=== PATIENT | female | born 1960 | race Caucasian/White ===

== ENCOUNTER 2021-05-21 10:27 | Observation (INO) | payer MEDICARE, SELFPAY ==
[2021-05-21] VITALS (14 sets, daily range): BP systolic 124–159; BP diastolic 66–103; PULSE 71–81; RESP 15–21; TEMP 35.8–36.8; O2SAT 93–98; BMI 37.0
--- NOTE | ~2021-05-21 | CT_ITS ---
EXAMINATION: CTA brain carotid DATE: 05/21/2021 12:06 INDICATION: Slurred speech. Right facial weakness. TECHNIQUE: Computed tomographic angiography (CTA) of the head was performed with 100 mL Omnipaque-350 intravenous contrast. CTA of the neck was performed with intravenous contrast. Automated exposure co ntrol and iterative reconstruction technique were employed. The dose-length product was 1009.07 mGy-c m. Maximum intensity projection and volume rendered 3D-reconstructions were created by the technBeeziki st on a separate workstation. COMPARISON: Head CT 05/21/2021 FINDINGS: HEAD CTA: There is no intracranial hemorrhage, acute infarction, or abnormal intracranial mass lesion . The ventricles are normal in size. There is mucosal thickening in the paranasal sinuses. The mastoi d air cells are normal. The orbits are normal. Left vertebral artery is dominant. There is no signifi cant stenosis of basilar artery or the posterior cerebral arteries. There is no significant stenosis of the intracranial internal carotid arteries or anterior or middle cerebral arteries. Anterior commu nicating artery is normal. Right posterior communicating artery is normal. A left posterior communica ting artery is not identified. There is no aneurysm. NECK CTA: There are no pathologically enlarged lymph nodes. There is no significant stenosis of the v ertebral arteries. There is no visible plaque in the proximal internal carotid arteries. There is 0% stenosis of the proximal right internal carotid artery relative to normal distal artery lumen diamete r (NASCET criteria). There is 0% stenosis of the proximal left internal carotid artery relative to no rmal distal artery lumen diameter. There is moderate cervical spondylosis. IMPRESSION: 1. Normal brain. No aneurysm or significant intracranial arterial stenosis. 2. 0% stenosis of the proximal internal carotid arteries relative to normal distal artery lumen diame ters (NASCET criteria). Reviewed, dictated and finalized at location A. RONMENTAL COMMUNICATIONS SPECIALIST IMPRESSION: 1. Normal brain. No aneurysm or significant intracranial arterial stenosis. 2. 0% stenosis of the proximal internal carotid arteries relative to normal dis oral artery lumen diameters (NASCET criteria).
--- NOTE | ~2021-05-21 | CT_ITS ---
EXAMINATION: CT brain wo con DATE: 05/21/2021 11:02 INDICATION: Difficulty speaking. Dizziness. Sudden onset of seizure. TECHNIQUE: Computed tomography (CT) of the head was performed without intravenous contrast. The dose- length product was 756.67 mGy-cm. Automated exposure control and iterative reconstruction technique w ere employed. COMPARISON: None FINDINGS: Normal brain parenchymal volume for age. Normal beck-white differentiation. No acute intrac ranial hemorrhage, infarction, mass or mass effect. No ventriculomegaly or midline shift. Basilar cis terns are patent. There is intracranial atherosclerosis. There is mild mucosal thickening of the maxi llary sinuses. No acute intracranial hemorrhage, infarction, mass or mass effect. IMPRESSION: 1. No acute intracranial abnormality. As per stroke protocol, I called these results to emergency room, discussed with Dr. Ruthann Boston MD at 05/21/2021 11:08 LIQUEFIED NATURAL GAS PLANT OPERATOR. Reviewed, dictated and finalized at location A. EFIED NATURAL GAS PLANT OPERATOR IMPRESSION: 1. No acute intracranial abnormality. As per stroke protocol, I called these results to emergency room, discussed wit h Dr. Ruthann Boston MD at 05/21/2021 11:08 LIQUEFIED NATURAL GAS PLANT OPERATOR.
--- NOTE | ~2021-05-21 | MR_ITS ---
EXAMINATION: MR brain/brain stem wo/w con DATE: 05/21/2021 18:01 INDICATION: Right-sided numbness and aphasia TECHNIQUE: Magnetic resonance imaging (MRI) of the brain and brainstem was performed without and with 15 mL Multihance intravenous contrast. Sequences included sagittal and axial T1-weighted SE, axial d iffusion-weighted FS SE, axial T2*-weighted GRE, axial T2-weighted FLAIR, and axial T2-weighted FSE. Postcontrast axial and coronal T1-weighted SE was obtained. Apparent diffusion coefficient (ADC) maps were created. COMPARISON: Brain CT angiogram dated 05/21/2021 FINDINGS: There are no areas of restricted diffusion to suggest acute infarction. No intracranial hemorrhage or abnormal intracranial mass lesion. There are no intraparenchymal signal abnormalities seen on the ot her pulse sequences. The ventricles are symmetric and normal in size. There are no abnormal extra-axi al fluid collections. Flow voids are seen in the cerebral arteries on the T2-weighted sequences consi stent with their expected patency. Scattered mucosal thickening in the paranasal sinuses. Visualized orbits and soft tissues are unremarkable. There are no areas of abnormal enhancement on the post cont rast images. IMPRESSION: 1. Normal brain. No acute intracranial process or abnormally enhancing brain lesions.. Reviewed, dictated and finalized at [facility]. MANAGER IMPRESSION: 1. Normal brain. No acute intracranial process or abnormally enhancing brain le sions..
--- NOTE | ~2021-05-21 | XR_ITS ---
XR chest 1V portable DATE: 05/21/2021 11:20 INDICATION: Speech difficulty TECHNIQUE: Portable supine AP chest on 05/21/2021 at 1114 hours COMPARISON: 10/06/2014 CT chest high resolution FINDINGS: No pulmonary infiltrate or consolidation, pulmonary vascular congestion or pleural effusion or pneumothorax. Heart size is borderline. There is diffuse osteopenia. IMPRESSION: No active pulmonary disease Reviewed, dictated and finalized at location B. WOOD DEALER IMPRESSION: No active pulmonary disease
[2021-05-21 10:37] LABS: Glucose Point of Care 82 mg/dl (65-105)
--- NOTE | 2021-05-21 10:46 | ECG_ITS ---
Measurements Intervals Thayer Rate: 85 P: 67 MT: 144 QRS: -11 QRSD: 133 T: 20 QT: 376 QTc: 449 Interpretive Statements SINUS RHYTHM RIGHT BUNDLE BRANCH BLOCK BASELINE ARTIFACT- I, II, III, AVR, AVF, V4-V5 ABNORMAL ECG Electronically Signed On 05-21-2021 12:47:50 COMPUTER HARDWARE ENGINEER by Garth Hart D.O.
[2021-05-21] MEDS: LORazepam INJ (*CRX) 2 MG/ML VIAL (11:05)
[2021-05-21 11:07] LABS: Basophils Absolute Auto 0.1 K/mm3 (0.0-0.1); Basophils Percent Auto 0.7 % (0.2-1.2); Eosinophils Absolute Auto 0.2 K/mm3 (0-0.3); Eosinophils Percent Auto 1.9 % (0-4.4); Hematocrit 37.3 % (37.0-47.0); Hemoglobin 12.2 g/dL (12.0-15.0); Immature Granulocyte Absolute 0.04 K/mm3 (0.00-0.031); Immature Granulocyte Percent A 0.4 % (0-0.5); Lymphocytes Absolute Auto 3.54 K/mm3 (0.9-3.2); Mean Corpuscular HGB Conc 32.7 g/dl (32-36); Mean Corpuscular Hemoglobin 30.7 pg (26-34); Mean Corpuscular Volume 93.7 fl (80-100); Mean Platelet Volume 8.7 fl (7.4-10.4); Monocytes Absolute Auto 0.7 K/mm3 (0.1-0.6); Monocytes Percent Auto 5.7 % (2.6-8.5); Neutrophils Absolute Auto 6.9 K/mm3 (1.3-6.7); Neutrophils Percent Auto 60.3 % (45.5-73.1); Platelet Count Result 329 k/mm3 (150-375); Red Blood Count 3.98 M/mm3 (4.2-5.4); Red Cell Distribution Width 14.8 % (11.5-14.5); White Blood Count 11.4 K/mm3 (4.5-10.0)
[2021-05-21 11:25] LABS: INR 0.9
[2021-05-21 11:26] LABS: Partial Thromboplastin Time 25.5 SECONDS (22.3-36.8)
--- NOTE | 2021-05-21 11:26 | ED.NEUROSD ---
HPI - Neuro Symptoms/Deficit General Chief Complaint: Suspected CVA Stated Complaint: Suspected CVA Source: patient, family and RN notes reviewed Mode of arrival: wheelchair Limitations: dementia History of Present Illness HPI Narrative: This is a 60 year old female with history of dementia and seizures who presents for evaluation of a possible stroke. Patient's states he was called by his brother in law around 10 am. He was told that patient was unable to talk or get her words out. Patient states she was taking a nap. She woke up from her nap and she was trying to call out to her brother in law . She states her brother in law was in the other room, so it is unclear if this was her last known normal. Patient's left the house at 8 am and he states patient was at baseline. She woke up at 430 am. . She reports her right side of mouth was twisted and she could not get words out. She also reports right side numbness. Patient's states this is a different presentation from her seizures. Patient had seizure in CT scan after arrival. Patient is also complaining about chest tightness due to COPD. He denies nausea, vomiting, fever, blurred vision outside of normal. Related Data Home Medications Medication Instructions Recorded Confirmed aripiprazole [Abilify] 2.5 mg PO DAILY 05/21/21 05/21/21 carbamazepine 200 mg PO Q12H 05/21/21 05/21/21 cyclobenzaprine [Flexeril] 10 mg PO HS 05/21/21 05/21/21 docusate sodium [Colace] 100 mg PO DAILY 05/21/21 05/21/21 gabapentin 300 mg PO BID 05/21/21 05/21/21 magnesium oxide 400 mg PO DAILY 05/21/21 05/21/21 mecobalamin (vitamin B12) 1,000 mcg PO DAILY 05/21/21 05/21/21 multivitamin [Daily Multivitamin] 1 tablet PO DAILY 05/21/21 05/21/21 omeprazole 40 mg PO DAILY 05/21/21 05/21/21 pravastatin 40 mg PO HS 05/21/21 05/21/21 venlafaxine [Effexor XR] 150 mg PO DAILY 05/21/21 05/21/21 Allergies Allergy/AdvReac Type Severity Reaction Status Date / Time No Known Allergies Allergy Unknown Unverified 03/26/09 07:37 Review of Systems Review of Systems: All systems reviewed & are unremarkable except as noted in HPI and below PMFSH Past Medical History Medical History Depression with anxiety GERD without esophagitis Hyperlipidemia type II Neuropathy Seizure Surgical History Surgical History H/O breast biopsy H/O: hysterectomy History of appendectomy History of colon surgery History of tonsillectomy Hx of cholecystectomy Family History Family History Father Lung cancer Mother Lung cancer COPD (chronic obstructive pulmonary disease) Social History Social History Social History: The patient has 2 children and is disabled. The patient used to smoke and quit 9 years ago. Her is a durable power workers compensation defense attorney for healthcare. Code status full code Alcohol intake: unknown Substance use: unknown Spiritual care concerns: No Exam Const: General: cooperative, well developed, alert and awake Nutritional Appearance: average body habitus Orientation/consciousness: oriented to person, oriented to place and Other orientation findings (thinks she is 50, knows month is may) HENMT: Head: normocephalic and atraumatic Ears: hearing grossly normal bilaterally Face and sinus: normal facial exam, sinuses nontender and face symmetric Mouth: Yes Normal oral and palatal mucosa present, Yes lip normal, Yes oropharynx normal and Yes moist mucous membranes Throat: posterior oropharynx normal, tonsils normal and uvula midline Eyes: Pupils: Equal, round and reactive pupils present EOM: EOMs intact bilaterally Neck: Neck: normal visual inspection and full ROM Resp: Effort & Inspection: normal respiratory effort, able to speak in complete sentences
[2021-05-21 11:32] LABS: Alanine Aminotransferase 15 U/L (4-35); Alkaline Phosphatase 123 U/L (38-126); Anion Gap 8 mmol/L (8-16); Aspartate Amino Transferase 27 U/L (14-36); Bilirubin,Total 0.3 mg/dL (0.2-1.3); Blood Urea Nitrogen 18 mg/dL (7-17); Calcium 10.1 mg/dL (8.4-10.2); Carbon Dioxide 31 mmol/L (22-30); Chloride 101 mmol/L (98-107); Estimated CRCL calculation 68 ml/min; Estimated Glomerular Filt Rate > 60; Glucose 99 mg/dL (65-110); Potassium 4.2 mmol/L (3.4-5.0); Sodium 140 mmol/L (137-145)
--- NOTE | 2021-05-21 11:32 | PC.NURSE ---
Patient presents to ED with difficult speech and right sided numbness with onset at estimated 1000 this morning. 20g IV placed in left AC, EKG performed, bedside glucose captured. Patient taken to CT. estimated 15 seconds of seizure activity observed during CT, Ativan administered. Patient returns from CT. states described seizure activity is typical with her hx.
[2021-05-21 11:43] LABS: Troponin I < 0.012 ng/mL (0.000-0.034)
--- NOTE | 2021-05-21 14:12 | PM.IMHP ---
H&P: HPI History of Present Illness Date/Time: 05/21/21 14:12 this is a 60-year-old female patient who has a history of early stage dementia. She also has a history of seizures. The tells me that she has had seizures now for 9 years. The patient has been carbamazepine and takes it routinely. She does not skip any of the medication. The patient stated that she was sitting in a recliner watching TV and felt okay. Then she got up and went to the bathroom and came back and sat her chair. The patient stated that she just did not feel right and she was trying to call for her [id number] who was in the next room. The patient stated she knew what she wanted to say but could not talk she could not get the words out. The patient is now awake and talking. She does have some right-sided weakness. The patient was taken for stat CT scan of the brain when she had a seizure. An EEG has been ordered for the patient neurology has been consulted. The patient was given Ativan. Head and neck CT a was read as normal brain. No aneurysm or significant intracranial arterial stenosis. 0% stenosis of the proximal internal carotid arteries relative to normal distal artery lumen diameters. Chest x-ray was read by radiology as no acute pulmonary disease. Head CT was read as no acute intracranial abnormality. The patient is being admitted for observation status on the date of service of 05/21/2021 Chief Complaint: Right-sided weakness Review of Systems Review of Systems: All systems reviewed & are unremarkable except as noted in HPI and below Constitutional: Constitutional: Reports as per HPI and Reports no additional constitutional complaints Eyes: Eyes: Reports as per HPI and Reports no additional eye complaints ENT: Reports system reviewed and no additional complaints, except as documented and Reports Normal hearing present Cardiovascular: Cardiovascular: Reports no additional cardiovascular complaints Respiratory: Respiratory: Reports no additional respiratory complaints and Reports no additional respiratory complaints Gastrointestinal: Gastrointestinal: Reports as per HPI and Reports no additional gastrointestinal complaints Musculoskeletal: Musculoskeletal: Reports no additional musculoskeletal complaints Integumentary/Breasts: Skin/Breast: Reports system reviewed and no additional complaints, except as docu and Reports as per HPI Neurologic: Reports system reviewed and no additional complaints, except as documented, Reports as per HPI and Reports Normal hearing present Psychiatric: Psychiatric: Reports no additional psychiatric complaints and Reports as per HPI Endocrine: Endocrine: Reports no additional endocrine complaints Hematologic/Lymphatic: Hematologic/Lymphatic: Reports no additional hematologic/lymphatic complaints Allergic/Immunologic: Allergic/Immunologic: Reports no additional allergic/immunologic complaints [facility] Past Medical History Medical History Depression with anxiety GERD without esophagitis Hyperlipidemia type II Neuropathy Seizure Surgical History Surgical History H/O breast biopsy H/O: hysterectomy History of appendectomy History of colon surgery History of tonsillectomy Hx of cholecystectomy Family History Family History Father Lung cancer Mother Lung cancer COPD (chronic obstructive pulmonary disease) Social History Social History Social History: The patient has 2 children and is disabled. The patient used to smoke and quit 9 years ago. Her is a durable power commercial litigation attorney for healthcare. Code status full code Alcohol intake: unknown Substance use: unknown Spiritual care concerns: No Meds Home Medications and Allergies Home Medications Medication Instructions Recorded
[2021-05-21 14:47] LABS: Add Urine Microscopic? NO; Appearance Urine Clear (Clear); Bilirubin Urine Negative (Negative); Blood Urine Negative (Negative); Color Urine Straw (Yellow); Glucose Urine UA Negative (Negative); Ketones Urine Negative (Negative); Leukocyte Esterase Ur Negative LEU/UL (Negative); Nitrate Urine Negative (Negative); Protein Urine Negative (Negative); Urobilinogen Urine Negative mg/dL (<2.0)
[2021-05-21 15:01] LABS: Specific Grav Ur 1.043 (1.001-1.035)
--- NOTE | 2021-05-21 16:00 | ADMGEN ---
This patient, Suly Gonzales, was admitted to Medical Room 341-01. Patient/family oriented to hospital policies and general routines including ID bracelet, bed and alarms, visiting hours, pain management, procedures, bathroom and other care routines, personal items, smoking policy, room service/diet, and visiting hours. Information on how to activate the Rapid Response Team has been discussed. Patient/Family are encouraged to report perceived risks to care and to ask questions if they do not understand what they are told or what they should do.
--- NOTE | 2021-05-21 16:45 | WPDNEURCNPN ---
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, had a thorough discussion with both of them if this EEG also comes back normal I will treat her with the medication accordingly they both agreed to these particular episodes are not real seizures Consult date: 05/22/21 HPI: Suly Gonzales is a 60 year old female admitted to the hospital for the complaints of seizure reportedly patient was sitting in a recliner watching TV and felt okay she got up and went to the bathroom and came back and sat in her chair she was not feeling right and she was trying to call for her brother in law who was in the next room she was unable to say what she wanted to say by the time she came to the hospital she was awake and talking but was noted to have so-called right-sided weakness, patient had a stat CT scan when she had a seizure she received Ativan and her CT scan of the head was read as normal obviously with no evidence of hemorrhage CTA was negative with negative for the aneurysm , and does have ongoing history of anxiety with depression, neuropathy, and seizure disorder also outpatient medications include Effexor XR 150 mg daily gabapentin 300 mg b.i.d. Flexeril 10 mg HS Loretta 52.5 mg daily and carbamazepine 200 mg q.12 hours[address] As mentioned before CT of the head negative CTA of the head and neck negative Review of Systems Review of Systems: All systems reviewed & are unremarkable except as noted in HPI and below PMFSH Past Medical History Medical History Depression with anxiety GERD without esophagitis Hyperlipidemia type II Neuropathy Seizure Surgical History Surgical History H/O breast biopsy H/O: hysterectomy History of appendectomy History of colon surgery History of tonsillectomy Hx of cholecystectomy Family History Family History Father Lung cancer Mother Lung cancer COPD (chronic obstructive pulmonary disease) Social History Social History Social History: The patient has 2 children and is disabled. The patient used to smoke and quit 9 years ago. Her is a durable power civil attorney for healthcare. Code status full code Smoking status: Former smoker Smoking end date: 05/31/12 Alcohol intake: unknown Substance use: unknown Spiritual care concerns: No Meds Home Medications and Allergies Home Medications Medication Instructions Recorded Confirmed Type aripiprazole [Abilify] 2 mg PO HS 05/21/21 05/22/21 History docusate sodium [Colace] 100 mg PO DAILY 05/21/21 05/21/21 History gabapentin 300 mg PO BID 05/21/21 05/21/21 History mecobalamin (vitamin B12) 1,000 mcg PO DAILY 05/21/21 05/21/21 History multivitamin [Daily Multivitamin] 1 tablet PO DAILY 05/21/21 05/21/21 History omeprazole 40 mg PO DAILY 05/21/21 05/21/21 History pravastatin 40 mg PO HS 05/21/21 05/21/21 History venlafaxine [Effexor XR] 150 mg PO DAILY 05/21/21 05/21/21 History B complex with [id number]-Au 1 ea PO BID 05/22/21 05/22/21 History alprazolam 0.25 mg PO DAILY 05/22/21 05/22/21 History donepezil 10 mg PO DAILY 05/22/21 05/22/21 History tizanidine 4 mg PO HS 05/22/21 05/22/21 History Allergies Allergy/AdvReac Type Severity Reaction Status Date / Time No Known Allergies Allergy Unknown Verified 05/21/21 23:26 Vital Signs Vital Signs - 24 hr 05/21/21 10:36 05/21/21 10:38 05/21/21 10:46 Temperature 36.8 C Pulse Rate 77 79 80 Respiratory Rate 18 21 H 20 Blood Pressure 159/103 H 159/103 H 150/100 H Pulse Oximetry 94 98 97 05/21/21 10:47 05/21/21 11:17 05/21/21 12:34 Temperature Pulse Rate 80 77 Respiratory Rate 18 15 Blood Pressure 150/100 H 131/92 H 136/84 Pulse Oximetry 97 97 97 05/21/21 13:30 05/21/21 14:35 05/21/21 15:30 Temperature Pulse Rate 71 81 Respiratory Rate 20 19 B
[2021-05-21] MEDS: GABAPENTIN 300 MG CAPSULE PO (20:47)
[2021-05-21] MEDS: CYCLOBENZAPRINE HCL 10 MG TABLET PO (20:48)
[2021-05-21] MEDS: carBAMazepine 200 MG TABLET PO (20:48)
[2021-05-21] MEDS: PRAVASTATIN SODIUM 20 MG TABLET 40 MG PO (20:48)
[2021-05-21 20:53] LABS: Glucose Point of Care 148 mg/dl (65-105)
[2021-05-22] VITALS (9 sets, daily range): BP systolic 130–148; BP diastolic 64–79; PULSE 66–86; RESP 16–20; TEMP 36–36.3; O2SAT 94–98
--- NOTE | 2021-05-22 | ECHO_ITS ---
Patient Info Name: Suly Gonzales Age: 60 years : 1960 Gender: Female Ht: 62 in Wt: 202 lbs BSA: 2.05 m2 HR: 79 bpm BP: 148 / 64 mmHg Heart Rhythm: Sinus Rhythm Technical Quality: Fair Exam Date: 05/22/2021 12:37 PM Exam Location: [facility] Patient Status: Outpatient Admit Date: 05/21/2021 Staff Ordering Physician: Daksha Reyes NP Development Consultant: Rachel Maldonado RDCS Attending Provider: Mary Brown PA-C Referring Physician: Eric ESCAMILLA; Exam Type: CA echo doppler color flow Study Info Indications - stroke like symptoms Complete two-dimensional, color flow and Doppler transthoracic echocardiogram is performed. Summary 1. Complete two-dimensional, color flow and Doppler transthoracic echocardiogram is performed. 2. Normal left ventricular size with borderline hypertrophy. Good systolic function of all segments with a visual ejection fraction of 60-65%. No focal wall motion abnormalities. Normal diastolic function. 3. No significant valve disease. 4. Normal sinus rhythm. Left Ventricular Outflow Tract Name Value Normal LVOT 2D LVOT Diameter 2.0 cm LVOT Doppler LVOT Peak Gradient 8 mmHg LVOT Mean Gradient 4 mmHg LVOT VTI 22 cm LVOT VTI/AV VTI Ratio 0.8 LVOT Stroke Volume 67 ml LVOT CO 5.1 l/min LVOT CI 2.5 l/min/m2 Pulmonic Valve Name Value Normal RVOT Doppler RVOT Peak Gradient 4 mmHg PV Doppler PV Peak Gradient 6 mmHg Mitral Valve Name Value Normal MV Doppler MV Decel Worth 420 cm/s2 MV PHT 53 ms MV Area (PHT) 4.1 cm2 4.0-5.0 MV Diastolic Function MV E Peak Velocity 77 cm/s MV A Peak Velocity 76 cm/s MV E/A 1.0 MV Decel Time 183 ms MV Annular TDI MV E/e' (Septal) 8.4 <=8.0 MV E/e' (Lateral) 7.5 <=8.0 MV E/e' (Average) 8.0 Tricuspid Valve Name
[2021-05-22 05:53] LABS: Basophils Absolute Auto 0.1 K/mm3 (0.0-0.1); Basophils Percent Auto 0.7 % (0.2-1.2); Eosinophils Absolute Auto 0.2 K/mm3 (0-0.3); Eosinophils Percent Auto 2.2 % (0-4.4); Hematocrit 37.6 % (37.0-47.0); Hemoglobin 12.6 g/dL (12.0-15.0); Immature Granulocyte Absolute 0.05 K/mm3 (0.00-0.031); Immature Granulocyte Percent A 0.5 % (0-0.5); Lymphocytes Absolute Auto 3.24 K/mm3 (0.9-3.2); Lymphocytes Percent Auto 31.4 % (18.3-44.2); Mean Corpuscular HGB Conc 33.5 g/dl (32-36); Mean Corpuscular Volume 92.6 fl (80-100); Mean Platelet Volume 8.6 fl (7.4-10.4); Monocytes Absolute Auto 0.5 K/mm3 (0.1-0.6); Monocytes Percent Auto 5.1 % (2.6-8.5); Neutrophils Absolute Auto 6.2 K/mm3 (1.3-6.7); Neutrophils Percent Auto 60.1 % (45.5-73.1); Platelet Count Result 330 k/mm3 (150-375); Red Blood Count 4.06 M/mm3 (4.2-5.4); Red Cell Distribution Width 14.7 % (11.5-14.5); White Blood Count 10.3 K/mm3 (4.5-10.0)
[2021-05-22 05:58] LABS: Lactic Acid Reflex 1.6 mmol/L (0.7-2.1)
[2021-05-22 05:59] LABS: Alanine Aminotransferase 14 U/L (4-35); Albumin Level 4.1 g/dL (3.5-5.1); Alkaline Phosphatase 118 U/L (38-126); Anion Gap 5 mmol/L (8-16); Aspartate Amino Transferase 23 U/L (14-36); Bilirubin,Total 0.2 mg/dL (0.2-1.3); Blood Urea Nitrogen 22 mg/dL (7-17); Calcium 9.6 mg/dL (8.4-10.2); Carbon Dioxide 32 mmol/L (22-30); Chloride 100 mmol/L (98-107); Estimated CRCL calculation 67 ml/min; Estimated Glomerular Filt Rate > 60; Glucose 111 mg/dL (65-110); Lactate Dehydrogenase 339 U/L (313-618); Magnesium 1.9 mg/dL (1.6-2.3); Phosphorus 4.5 mg/dL (2.5-4.5); Potassium 4.1 mmol/L (3.4-5.0); Sodium 137 mmol/L (137-145)
[2021-05-22 06:04] LABS: Partial Thromboplastin Time 30.2 SECONDS (22.3-36.8)
--- NOTE | 2021-05-22 08:56 | PC.NURSE ---
Went to give the patient her morning medication which the stated he already gave her the morning meds from the medication organizer that her brought( not the bottles). Explained to (again) that we can not give her meds that have not been verified by our pharmacy and that it causes confusion and is unsafe. So I spoke to the patient's daughter who verified that the patient is on tegretol 200mg po bid and has been on it for a very long. does not know what the tegretol even looks like in his med organizer so its unclear if she has even had it although he says he's been doing this for nine years.
--- NOTE | 2021-05-22 10:07 | PCOTNOTE ---
Attempted to see for evaluation. Pt. had rapid response this morning. Pt. on HOLD today of OT/ PT isabella, per nurse report.
--- NOTE | 2021-05-22 10:25 | PCPTNOTE ---
Attempted to see for PT evaluation. Pt. had rapid response called this morning. HOLD PT evaluation today, per nurse report.
[2021-05-22] MEDS: ACETAMINOPHEN 325 MG TABLET 650 MG PO (10:33)
--- NOTE | 2021-05-22 11:16 | PM.IMPN ---
Progress Note: A&P Assessment and Plan (1) Seizure: Code(s): R56.9 - Unspecified convulsions Status: Chronic Assessment and Plan: Patient is a 60-year-old woman with a history of early stage dementia, history of seizures, who presented to the emergency room after she had an episode difficulty finding the correct words which has never happened before. The patient her were concerned for possible stroke and brought her to the ER for further evaluation. Initial vitals showed elevated blood pressure 159/103, heart rate 77, afebrile, normal oxygenation on room air. Initial labs showed leukocytosis at 11,400, normal H&H, normal differential, normal coag panel, normal renal function and electrolytes, normal LFTs, troponin normal. Urinalysis normal. CT head showed no acute intracranial abnormality. Chest x-ray showed no acute cardiopulmonary disease. CTA Head/Neck showed Normal brain. No aneurysm or significant intracranial arterial stenosis. 0% stenosis of the proximal internal carotid arteries relative to normal distal artery lumen diameters (NASCET criteria). MRI Brain showed Normal brain. No acute intracranial process or abnormally enhancing brain lesions. Patient was admitted into the hospital for further workup, evaluation for stroke-like symptoms and consult to neurology. While the patient was in the emergency room getting her workup she had a ?seizure? in the CT scan and they administered IV Ativan. Neurology evaluated the patient and recommended an EEG for further evaluation and workup for seizure activity Telemetry shows no acute arrhythmia. Will continue monitoring while here in hospital Echocardiogram is still pending EEG is still pending Continue monitoring. Appreciate neurology's input. 05/22/21: Rapid response was called for the patient having ?seizure-like activity?. Upon my arrival to the room the patient was talking to the nurse and no longer having any seizure-like activity. She was able to answer questions appropriately, no incontinence, tongue biting, otherwise at her baseline dementia. Did not seem to have a postictal phase. This episode occurred after the patient's had left the room to step outside, and echocardiogram tech had started to perform her test when her extremities began shaking and a rapid response was called. She did not need to be given any Ativan since seizure had resolved. I talked with the patient's nurse who states that the patient's pharmacy says she is no longer taking Tegretol. The patient's brought in her medicine bottles and there is no prescription for Tegretol. I called the patient's primary care provider Dr. Schulz who tells me the patient has a history of nonepileptic myoclonus and her seizure workups in the past have been otherwise unremarkable. He cannot remember why the Tegretol was stopped in December of 2019. He also tells me that the patient sees her psychiatrist Dr. Fofana regularly and is on multiple medications. Discussed the findings with the neurologist Dr. Polo who evaluated the patient today and talked in length with the patient and her . He states at this time let us discontinue the Tegretol. Complete further workup with an EEG to figure out if she has any seizure-like activity. If she does have seizure-like activity we will restart and anti convulsant, if the patient does not have seizure-like activity we will relieve her off of an anti convulsant and have her follow-up with primary care, psychiatrist and neurologist. (2) Right sided weakness: Code(s): R53.1 - Weakness Status: Acute Assessment and Plan: MRIs negative for stroke. Her right-sided weakness appears to be chronic and mostly back to her baseline. Continue working with PT/OT for further evaluation (3) Hyperlipidemia type II: Code(s): E78.01 - Familial hypercholest
[2021-05-22] MEDS: PANTOPRAZOLE 40 MG TABLET PO (16:59)
[2021-05-22] MEDS: ENOXAPARIN 40 MG/0.4 ML SYRINGE SUB-Q (17:01)
[2021-05-22] MEDS: CYCLOBENZAPRINE HCL 10 MG TABLET PO (20:10)
[2021-05-22] MEDS: TIZANIDINE HCL 4 MG TABLET PO (20:10)
[2021-05-22] MEDS: GABAPENTIN 300 MG CAPSULE PO (20:10)
[2021-05-22] MEDS: PRAVASTATIN SODIUM 20 MG TABLET 40 MG PO (21:19)
[2021-05-23] VITALS: PULSE 68
[2021-05-23 04:00] VITALS: PULSE 70
[2021-05-23 04:37] VITALS: BP 128/82; PULSE 76; RESP 12; TEMP 36.2; O2SAT 96
[2021-05-23 06:50] LABS: Hematocrit 41.4 % (37.0-47.0); Hemoglobin 13.5 g/dL (12.0-15.0); Mean Corpuscular HGB Conc 32.6 g/dl (32-36); Mean Corpuscular Hemoglobin 30.5 pg (26-34); Mean Corpuscular Volume 93.7 fl (80-100); Mean Platelet Volume 8.7 fl (7.4-10.4); Platelet Count Result 323 k/mm3 (150-375); Red Blood Count 4.42 M/mm3 (4.2-5.4); Red Cell Distribution Width 14.6 % (11.5-14.5); White Blood Count 10.2 K/mm3 (4.5-10.0)
[2021-05-23 06:56] LABS: Anion Gap 12 mmol/L (8-16); Blood Urea Nitrogen 19 mg/dL (7-17); Calcium 9.6 mg/dL (8.4-10.2); Carbon Dioxide 26 mmol/L (22-30); Chloride 100 mmol/L (98-107); Estimated CRCL calculation 60 ml/min; Estimated Glomerular Filt Rate > 60; Glucose 105 mg/dL (65-110); Potassium 4.3 mmol/L (3.4-5.0); Sodium 138 mmol/L (137-145)
[2021-05-23 08:00] VITALS: PULSE 85
[2021-05-23] MEDS: GABAPENTIN 300 MG CAPSULE PO (09:04)
[2021-05-23] MEDS: MULTIVITAMINS THERAPEUTIC TAB (*BKC) 1 TABLET PO (09:04)
[2021-05-23] MEDS: MAGNESIUM OXIDE 400 MG TABLET PO (09:04)
[2021-05-23] MEDS: VENLAFAXINE HCL XR 75 MG CAP.ER.24H 150 MG PO (09:04)
[2021-05-23] MEDS: ARIPiprazole 2.5 MG TABLET PO (09:04)
[2021-05-23] MEDS: DOCUSATE SODIUM 100 MG CAPSULE PO (09:04)
[2021-05-23] MEDS: DONEPEZIL HCL 10 MG TABLET PO (09:05)
[2021-05-23] MEDS: CYANOCOBALAMIN 1,000 MCG TABLET 1000 MCG PO (09:05)
[2021-05-23] MEDS: PANTOPRAZOLE 40 MG TABLET PO (09:05)
[2021-05-23] MEDS: ALPRAZolam (*CRX) 0.25 MG TABLET PO (09:06)
--- NOTE | 2021-05-23 11:00 | WPDNEUROLOGY ---
Neurology EEG Report General Information Date of Study: 05/23/21 TEST eeg DIAGNOSIS seizures CONDITION OF RECORDING awake drowsy and sleep EEG NUMBER [id number] CLINICAL HISTORY patient reported she has been having seizure for the last 9 years and has been told these are stress induced not epileptic. EEG DESCRIPTION Whole record consist of low-voltage 15 to 21 hertz per 2nd beta activity bilateral symmetrical sleep activity seen during sleep with intermittent regular EKG artifact. Hyperventilation not done. Photic stimulation not done. Non paroxysmal. Nonfocal. Nonlateralizing. IMPRESSION No significant abnormalities noted
[2021-05-23 12:00] VITALS: PULSE 87
--- NOTE | 2021-05-23 12:00 | WPDNEUROPN ---
Progress Note: A&P Additional Plan thorough discussion was made with the patient in front of her all the pros and cons of recurrent episodic change in the mental status lasting only for 1 to1-1/2 minutes discussed with normal EEGs all the time and normal MRI she was advised to cut down the number of medication which she has been getting with substituted 1 medication and was on the boat he wanted to decrease the medication also only the necessary 1 patient was definitely understanding and cooperative orders were given to the nurses and will follow her in the office Time Spent With Patient Time with patient: 15 - 25 minutes Subjective Date/time seen: 05/23/21 12:00Follow-up discussion with the patient and her in presence after reviewing the EEG which was completely normal Review of Systems Review of Systems: All systems reviewed & are unremarkable except as noted in HPI and below Exam Const: General: cooperative, comfortable, no acute distress, alert and awake Nutritional Appearance: average body habitus Orientation/consciousness: oriented to person, oriented to place and oriented to time Limitations: no limitations HENMT: Head: normocephalic Ears: hearing grossly normal bilaterally General nose exam: Normal external nose present Face and sinus: normal facial exam Eyes: General: appearance normal, both eyes and all related structures Alignment and Position: alignment normal Periorbital: periorbital findings normal Eyelids: eyelids normal Conjunctivae: conjunctivae normal Sclera: sclerae normal Cornea: corneas normal Pupils: Equal, round and reactive pupils present EOM: EOMs intact bilaterally Neck: Neck: normal visual inspection and full ROM Resp: Effort & Inspection: normal respiratory effort and able to speak in complete sentences Cardio: Jugular venous distension: no JVD Rate: regular rate Rhythm: regular rhythm Neuro: General: oriented to person, oriented to place and oriented to time Cranial nerves: Yes CN's II-XII intact bilaterally Speech: normal speech Gait exam (Neuro): Normal gait present Motor exam (neuro): 5/5 motor strength present throughout Deep tendon reflexes (DTR's): Right triceps reflex intensity grade: 1+, Left triceps reflex intensity grade: 1+, Rt Biceps (C5, C6): 1+, Left biceps reflex intensity grade: 1+, Right brachioradialis reflex intensity grade: 1+, Left brachioradialis reflex intensity grade: 1+, Right patellar reflex intensity grade: 1+, Left patellar reflex intensity grade: 1+, Right ankle reflex intensity grade: 1+ and Left ankle reflex intensity grade: 1+ Plantar Reflex Responses: downgoing: bilateral Objective Data Vital Signs Vital Signs: Vital Signs - 24 hr 05/22/21 14:00 05/22/21 16:00 05/22/21 20:00 Temperature 36.0 C L Pulse Rate 82 77 79 Respiratory Rate 20 20 Blood Pressure 130/70 Pulse Oximetry 98 98 05/22/21 21:30 05/23/21 00:00 05/23/21 04:00 Temperature Pulse Rate 74 68 70 Respiratory Rate 16 Blood Pressure 147/79 H Pulse Oximetry 97 05/23/21 04:37 05/23/21 08:00 Temperature 36.2 C L Pulse Rate 76 85 Respiratory Rate 12 Blood Pressure 128/82 Pulse Oximetry 96 Intake/Output Intake/Output: Intake & Output 05/20/21 05/21/21 05/22/21 05/23/21 23:59 23:59 23:59 23:59 Intake Total 240 1560 240 Output Total 3400 800 Balance 240 -8880 -560 Meds/Results Medications: Active Medications Generic Name Dose Route Start Last Admin Trade Name Freq PRN Reason Stop Dose Admin Acetaminophen 650 mg 05/21/21 19:13 05/22/21 10:33 Acetaminophen 325 Mg Tablet PO 650 mg Q4H PRN Administration Mild Pain (1-3) or Fever Alprazolam 0.25 mg 05/23/21 09:00 05/23/21 09:06 Alprazolam (*Crx) 0.25 Mg Tablet PO 0.25 mg DAILY IVANIA Administration Aripiprazole 2.5 mg 05/22/21 09:00 05/23/21 09:04 Aripiprazole 2.5 Mg Tablet PO 2.5 mg DAILY IVANIA Administration Cyanocobalamin 1,000 m
--- NOTE | 2021-05-23 12:32 | PM.DS ---
DS: Admitting Diagnosis Discharge Date 05/23/21 Admitting Diagnosis Trouble with speech DS: Discharge Diagnosis Discharge Diagnosis (1) Seizure: Code(s): R56.9 - Unspecified convulsions Status: Chronic Assessment and Plan: Patient is a 60-year-old woman with a history of early stage dementia, history of seizures, who presented to the emergency room after she had an episode difficulty finding the correct words which has never happened before. The patient her were concerned for possible stroke and brought her to the ER for further evaluation. Initial vitals showed elevated blood pressure 159/103, heart rate 77, afebrile, normal oxygenation on room air. Initial labs showed leukocytosis at 11,400, normal H&H, normal differential, normal coag panel, normal renal function and electrolytes, normal LFTs, troponin normal. Urinalysis normal. CT head showed no acute intracranial abnormality. Chest x-ray showed no acute cardiopulmonary disease. CTA Head/Neck showed Normal brain. No aneurysm or significant intracranial arterial stenosis. 0% stenosis of the proximal internal carotid arteries relative to normal distal artery lumen diameters (NASCET criteria). MRI Brain showed Normal brain. No acute intracranial process or abnormally enhancing brain lesions. Patient was admitted into the hospital for further workup, evaluation for stroke-like symptoms and consult to neurology. While the patient was in the emergency room getting her workup she had a ?seizure? in the CT scan and they administered IV Ativan. Neurology evaluated the patient and recommended an EEG for further evaluation and workup for seizure activity given her history. EEG was unremarkable without any seizure activity. Telemetry shows no acute arrhythmia. Echocardiogram showed normal EF and diastolic function. I called the patient's primary care provider Dr. Schulz who tells me the patient has a history of nonepileptic myoclonus and her seizure workups in the past have been otherwise unremarkable. He cannot remember why the Tegretol was stopped in December of 2019. He also tells me that the patient sees her psychiatrist Dr. Fofana regularly and is on multiple medications. Discussed the findings with the neurologist Dr. Polo who evaluated the patient today and talked in length with the patient and her . He states at this time let us discontinue the Tegretol. Dr. Polo also made multiple medication changes to her list which is stated below under discharge medications. Follow up instructions given with PCP, Psych and Dr. Polo. Return to ER warnings given. Patient and understand and agree with the plan. All questions answered. (2) Right sided weakness: Code(s): R53.1 - Weakness Status: Acute Assessment and Plan: MRIs negative for stroke. Her right-sided weakness appears to be chronic and mostly back to her baseline. Did well with therapy, back to baseline (3) Hyperlipidemia type II: Code(s): E78.01 - Familial hypercholesterolemia Status: Chronic Assessment and Plan: Continue pravastatin. (4) Depression with anxiety: Code(s): F41.8 - Other specified anxiety disorders Status: Chronic Assessment and Plan: On multiple different medications and sees a psychiatrist Dr. Fofana. Will need to follow-up with him as scheduled after discharge. (5) Neuropathy: Code(s): G62.9 - Polyneuropathy, unspecified Status: Chronic Assessment and Plan: Continue with gabapentin. (6) GERD without esophagitis: Code(s): K21.9 - Gastro-esophageal reflux disease without esophagitis Status: Acute Assessment and Plan: Continue with om
== END 2021-05-23 13:30 | disposition home or self-care (01) ==
LOC: ANHED 10:48 → ANH3MED 16:07
PROVIDERS: Nurse Practitioner; Admitting Provider Internal Medicine; Emergency Provider General Practice; PCP Internal Medicine; Visit Provider Physician Assistant
DX: R56.9 Unspecified convulsions (principal); R53.1 Weakness; R29.810 Facial weakness; R47.81 Slurred speech; R29.714 NIHSS score 14; E78.01 Familial hypercholesterolemia; F03.90 Unspecified dementia, unspecified severity, without behavioral disturbance, psychotic disturbance, mood disturbance, and anxiety; G62.9 Polyneuropathy, unspecified; K21.9 Gastro-esophageal reflux disease without esophagitis; F41.8 Other specified anxiety disorders; Z87.891 Personal history of nicotine dependence
CPT/HCPCS: 36415; 70450; 70496; 70498; 70553; 71045; 80048; 80053; 81003; 82948; 83605; 83615; 83735; 84100; 84443; 84484; 85025; 85027; 85610; 85730; 93005; 93306; 95816; 96372; 96374; 97161; 97165; 99285; A9270; A9577; G0378; J1650; J2060; Q9967

== ENCOUNTER 2022-04-23 07:47 | Outpatient (CLI) | payer MEDICARE, SELFPAY ==
[2022-04-23 08:15] VITALS: PULSE 84; O2SAT 92
[2022-04-23 08:20] VITALS: PULSE 97; O2SAT 86
[2022-04-23 08:25] VITALS: PULSE 98; O2SAT 88
[2022-04-23 08:30] VITALS: PULSE 98; O2SAT 91
[2022-04-23 08:45] VITALS: PULSE 88; O2SAT 92
--- NOTE | 2022-04-23 08:48 | HOMEO2EVAL ---
Evaluation was performed at [facility] Home Oxygen Evaluation RC: Home Oxygen (O2) Evaluation Start: 04/23/22 08:45 Freq: Status: Active Protocol: RPE Activity Type Activity Date Activity User E-sign Co-sign Detail Recorded Client Recorded Date Recorded By Document 04/23/22 08:15 [email or web address] [email or web address] 04/23/22 08:48 DJO Document 04/23/22 08:20 [email or web address] [email or web address] 04/23/22 08:48 DJO Document 04/23/22 08:25 [email or web address] [email or web address] 04/23/22 08:48 DJO Document 04/23/22 08:30 [email or web address] [email or web address] 04/23/22 08:48 DJO Document 04/23/22 08:45 [email or web address] [email or web address] 04/23/22 08:48 DJO 04/23/22 04/23/22 04/23/22 08:15 08:20 08:25 Home O2 Evaluation [Oxygen] -Test Phase Resting Exercise Exercise -Oxygen Delivery Room Air Room Air Nasal Cannula -Oxygen Flow Rate (L/min) 1 [Pulse Oximetry] -Pulse Oximetry (90-100 %) 92 86 L 88 L [Pulse Rate] -Pulse Rate (60-100 beats/min) 84 97 98 [Evaluation] -Activity Tolerance [Exercise] -Ambulation Distance (feet) -Ambulation Distance (meters) [Charges] -Treatment Charges O2 Evaluation - Outpatient 04/23/22 04/23/22 08:30 08:45 Home O2 Evaluation [Oxygen] -Test Phase Exercise Resting -Oxygen Delivery Nasal Cannula Room Air -Oxygen Flow Rate (L/min) 2 [Pulse Oximetry] -Pulse Oximetry (90-100 %) 91 92 [Pulse Rate] -Pulse Rate (60-100 beats/min) 98 88 [Evaluation] -Activity Tolerance Good [Exercise] -Ambulation Distance (feet) 500 -Ambulation Distance (meters) 152.39 [Charges] -Treatment Charges
== END 2022-04-23 07:48 | disposition home or self-care (01) ==
LOC: ANHPFT 07:48
PROVIDERS: PCP Family Medicine; Visit Provider Family Medicine
DX: R09.02 Hypoxemia (principal); J44.9 Chronic obstructive pulmonary disease, unspecified; R06.00 Dyspnea, unspecified
CPT/HCPCS: 94618

== ENCOUNTER 2023-04-29 09:21 | Outpatient (CLI) | payer MEDICARE, SELFPAY ==
--- NOTE | ~2023-04-29 | MM_ITS ---
EXAMINATION: MM screening [facility] BI w sheila HISTORY: Screening mammogram TECHNIQUE: Craniocaudal and mediolateral oblique 3-D tomosynthesis images were obtained and synthetic 2-D images were generated. CAD analysis was submitted and interpreted. COMPARISON: No prior mammogram is available for comparison at this institution. BREAST PARENCHYMAL COMPOSITION: There are scattered areas of fibroglandular density. FINDINGS: 7.4 x 10.1 mm circumscribed mass is noted posteriorly in the upper outer quadrant of the le ft breast. Diagnostic left mammogram and left breast ultrasound examination are recommended. No suspicious mass, architectural distortion, malignant calcification, skin thickening or retraction of either breast is noted otherwise. IMPRESSION: 1. 7.4 x 10.1 mm circumscribed mass in posterior upper outer left breast 2. Diagnostic left mammogram and left breast ultrasound examination are recommended BI-RADS Category 0: Incomplete: Needs additional imaging evaluation. Reviewed, dictated and finalized at location A. LING SUPERINTENDENT IMPRESSION: 1. 7.4 x 10.1 mm circumscribed mass in posterior upper outer left breast 2. Diagnostic left mammogram and left breast ultrasound examination are recomme nded BI-RADS Category 0: Incomplete: Needs additional imaging evaluation.
== END 2023-04-29 09:22 | disposition home or self-care (01) ==
PROVIDERS: PCP Family Medicine; Visit Provider Family Medicine
DX: Z12.31 Encounter for screening mammogram for malignant neoplasm of breast (principal); R92.8 Other abnormal and inconclusive findings on diagnostic imaging of breast
CPT/HCPCS: 77063; 77067

== ENCOUNTER 2023-05-26 08:38 | Outpatient (CLI) | payer MEDICARE, SELFPAY ==
--- NOTE | ~2023-05-26 | MMUS_ITS ---
EXAMINATION: MM diagnostic kvng LT w sheila, US breast LT limited HISTORY: 7.4 x 10.1 mm circumscribed mass in posterior upper outer quadrant of left breast reported o n 04/29/2023 screening mammogram TECHNIQUE: Additional 3-D tomosynthesis images of the left breast were performed and synthetic 2-D im ages were generated. CAD analysis was submitted and interpreted. High resolution upper outer quadrant left breast ultrasound was performed. COMPARISON: 04/29/2023 bilateral screening mammogram FINDINGS: MAMMOGRAPHIC FINDINGS: Approximately 7.8 x 10 mm circumscribed low-density opacity with halo sign is noted posteriorly in th e upper outer quadrant of the left breast; the mammographic appearance is consistent with benign proc ess. ULTRASOUND: At 1:00 11 cm from the nipple there is a parallel circumscribed sonolucent lesion measuring approxima tely 2.6 x 8 mm. There is no internal vascularity or posterior shadowing. No suspicious mass or shadowing is detected IMPRESSION: 1. Benign finding 2. Routine annual mammographic screening is recommended BI-RADS Category 2: Benign finding(s). Reviewed, dictated and finalized at location A. LY CONSUMER SCIENCE FCS TEACHER IMPRESSION: 1. Benign finding 2. Routine annual mammographic screening is recommended BI-RADS Category 2: Benign finding(s).
== END 2023-05-26 08:39 | disposition home or self-care (01) ==
LOC: CHSIMG 08:39
PROVIDERS: PCP Family Medicine; Visit Provider Family Medicine
DX: N63.20 Unspecified lump in the left breast, unspecified quadrant (principal); R92.8 Other abnormal and inconclusive findings on diagnostic imaging of breast
CPT/HCPCS: 76642; 77061; 77065; G0279

== ENCOUNTER 2024-06-30 13:24 | Outpatient (CLI) | payer MEDICARE, SELFPAY ==
--- NOTE | ~2024-06-30 | MM_ITS ---
EXAMINATION: MM screening [facility] BI w sheila HISTORY: Screening TECHNIQUE: Craniocaudal and mediolateral oblique 3-D tomosynthesis images were obtained and synthetic 2-D images were generated. CAD analysis was submitted and interpreted. COMPARISON: Comparison to multiple prior studies sequentially, with oldest reviewed study dated 04/02. BREAST PARENCHYMAL COMPOSITION: Not dense: There are scattered areas of fibroglandular density. FINDINGS: Radiolucent mass upper outer quadrant of the left breast is stable with benign appearance. There is no evidence of suspicious mass, calcification, or architectural distortion to suggest malign leesa in either breast. There has been no suspicious interval change. IMPRESSION: 1. No mammographic evidence of malignancy. 2. Recommend routine screening mammography in one year. BI-RADS Category 1: Negative Reviewed, dictated and finalized at location A. ER CLEANER
--- OUTSIDE RECORDS SUMMARY | 2024-06-30 14:10 | XMS_ITS | Encounter Summary ---
Author Organization [facility] - [facility] Address [address] [place] [address]. [place] [address] [place] [address] Care Team Providers Care Customer Support Technician Name Role Phone Lucien Marrufo MD Unavailable [phone] [facility] Primary Care Provider + Reason for Visit * Reason Onset Date Comments Medication 06/29/2024 Encounter Details Date Type Department Care Team (Late st Contact Info) Description 06/29/2024 Telephone [facility] Multispecialty Care - [facility] [address] [facility], [address] [place] [id number] Lucien Marrufo MD [address] [place] [address] [address] [place] [address] Medication Social History Tobacco Use Types Packs/Day Years Used Date Smoking Tobacco: Former Cigarettes 1 35 1 975 - 2010 Smokeless Tobacco: Never Alcohol Use Standard Drinks/Week Comments Never 0 (1 standard drink = 0.6 oz pur e alcohol) PHQ-2 Answer Date Recorded Patient Health Questionnaire-2 Score 4 06/24/2024 Comments No Sex and Gender Information Value Date Recorded Sex Assigned at Not on file Legal Sex Female 8:23 PM CDT Gender Identity Not on file Sexual Orientation Not on file documented as of this encounter Functional Status * RETIRED Are you deaf or do you have serious difficulty hearing Answer Date of Assessment Author Status No 12/21/2021 5:00 PM CDT Activ e * RETIRED Are you blind or do you have serious difficulty seeing, even when wearing glasses? Answer Date of Assessment Author Status No 12/21/2021 5:00 PM CDT Activ e * Do you have serious difficulty walking or climbing stairs? Answer Date of Assessment Author Status No 12/21/2021 5:00 PM ARTUROT Adonis Fernandez RN Active * Do you have difficulty dressing or bathing? Answer Date of Assessment Author Status No 12/21/2021 5:00 PM CDT Adonis Fernandez RN Active * Because of a physical, mental, or emotional condition, do you have difficulty doing errands alone such as visiting a doctor's office or shopping? Answer Date of Assessment Author Status No 12/21/2021 5:00 PM Adonis Duron RN Active documented as of this encounter Mental Status * Because of a physical, mental, or emotional condition, do you have serious difficulty concentrating, remembering, or making decisions? Answer Entry Date Author Status No 12/21/2021 5:00 PM CDAdonis De Jesus RN Active documented in this encounter Progress Notes * Pradeep Bermudez MA - 06/29/2024 10:39 AM CST Printed for provider ESS AND WELLNESS DIRECTOR * Brooklyn Tse CRT - 06/29/2024 8:50 AM CST ----- Message from Marizol Herndon sent at 06/28/2024 3:50 PM FITNESS AND WELLNESS DIRECTOR ----- Patient was here recently to see provider and she mentioned the Trelogy was too expensive. Provider, Lexie Paz, wanted to reach out to Dr Marrufo to see if there was any alternative. ESS AND WELLNESS DIRECTOR documented in this encounter Plan of Treatment Upcoming Encounters Date Type Department Care Team (Late st Contact Info) Description 07/28/2024 3:00 PM FITNESS AND WELLNESS DIRECTOR Appointment [facility] Diagnostic Imaging [address] [place] [address] Lexie Paz FNP-BC [address] [facility], [address] [address] 09/22/2024 9:20 AM CDT Office Visit [facility] Family & Internal Medicine [facility] [address] [place] [phone] Lexie Paz FNP-BC [address] [facility], [address] [address] 10/25/2024 9:40 AM CDT Office Visit [facility] Pulmonology Specialty [address] [phone] Lucien Marrufo MD [address] [place] [address] 04/18/2025 2:40 PM FITNESS AND WELLNESS DIRECTOR Office Visit [facility] Pulmonology Specialty [address] [phone] Lucien Marrufo MD [address] [place] [id number] documented as of this encounter Visit Diagnoses Not on filedocumented in this encounter Additional Health Concerns Assessment Noted Time PHQ-9 Depression Total Score: 11 025 11:22 AM FITNESS AND WELLNESS DIRECTOR documented as of this encounter Care Teams Customer Support Technician Relationship Specialty Start Date End Date Lexie Paz FNP-BC [id number] [address] PCP - General Nurse Practitioner Family 06/28/24 [place] [address] [place] [address] Consulting Physician PULMONARY DISEASE 03/29/24 documented as of this encounter
--- OUTSIDE RECORDS SUMMARY | 2024-06-30 14:10 | XMS_ITS | Clinical Summary ---
Author Organization [facility] Address [address] [place] [address]. [place] [address] [place] [address] Care Team Providers Care Dental Lab Technician Name Role Phone Lucien Marrufo MD Unavailable [phone] Lexie Paz [facility] Primary Care Provider + Allergies No known active allergies Medications * This document contains information received from the source organization and may not represent a complete record from that organization. multi vitamin/minerals tablet Take 1 tablet by mouth daily. Active vitamin B-12 (CYANOCOBALAMIN) 1000 mcg tablet Take 1 tablet (1,000 mcg total) by mouth daily. Active albuterol sulfate HFA 108 (90 Base) MCG/ACT inhaler INHALE 1-2 PUFFS EVERY 6 HOURS NEEDED 022 Active docusate sodium (COLACE) 100 MG capsule Take 1 capsule (100 mg total) by mouth. Active albuterol (PROVENTIL) (2.5 MG/3ML) 0.083% nebulizer solutionIndicatio ns:Chronic bronchitis, unspecified chronic bronchitis type (CMS/HCC [facility]/HCC) INHALE 3 ML BY NEBULIZATION EVERY 6 HOURS NEEDED FOR WHEEZING OR SHORTNESS OF BREATH 375 mL 3 023 Active OXYGEN CONCENTRATOR SUPPLY, DME, 1 Device by Nasal route continuous. 3 liters Active memantine (NAMENDA) 5 MG tablet Take 1 tablet (5 mg total) by mouth 2 (two) times daily. Active DULoxetine (CYMBALTA) 60 MG capsule Take 1 capsule (60 mg total) by mouth daily. Active pravastatin (PRAVACHOL) 20 MG tablet Take 1 tablet (20 mg total) by mouth daily. Active metFORMIN ER (GLUCOPHAGE-XR) 500 MG 24 hr tabletIndications :Elevated blood sugar,Pre-diabete s TAKE 1 TABLET BY MOUTH EVERY DAY WITH BREAKFAST 90 tablet Active tezepelumab-ekko (TEZSPIRE) 210 MG/1.91ML Solution Auto-injector injectionIndicati ons:Severe persistent asthma without complication ([facility]) Inject 1.91 mLs (210 mg total) into the skin every 28 days. 1.91 mL 11 Active Additional Information Patient not taking.Reported on 06/24/2024 clorazepate (TRANXENE) 3.75 MG tablet Oral Active Fluticasone Propionate, Inhal, 50 MCG/ACT AEROSOL POWDER, BREATH ACTIVATED Inhalation Active polyethylene glycol-electrolyt es (NULYTELY) 420 g solution Oral Active cyclobenzaprine (FLEXERIL) 10 MG tabletIndications :Nocturnal muscle cramps Take 1 tablet (10 mg total) by mouth nightly at bedtime. 30 tablet 2 024 2024 Active omeprazole (PRILOSEC) 20 MG capsuleIndication s:Gastroesophagea l reflux disease without esophagitis TAKE 1 CAPSULE (20 MG TOTAL) BY MOUTH DAILY. D/C FAMOTIDINE 90 capsule 1 025 Active fenofibrate 160 MG tabletIndications :Hyperlipidemia, unspecified hyperlipidemia type TAKE 1 TABLET BY MOUTH EVERYDAY AT BEDTIME 90 tablet 025 Active Fluticasone-Umecl idin-Vilant (TRELEGY ELLIPTA) 200-62.5-25 MCG/ACT AEROSOL POWDER, BREATH ACTIVATEDIndicati ons:Severe persistent asthma without complication ([facility]) Inhale 1 puff into the lungs daily. 60 each 6 025 Active Vitamin D3 125 mcg Tab Take 1 tablet (125 mcg total) by mouth daily. Active BREZTRI AEROSPHERE 160-9-4.8 MCG/ACT inhalerIndication s:Chronic bronchitis, unspecified chronic bronchitis type ([facility]) Inhale 2 puffs into the lungs 2 (two) times daily. 10.7 g 11 024 2024 Discontinued(C ost of medication) omeprazole (PRILOSEC) 20 MG capsuleIndication s:Gastroesophagea l reflux disease without esophagitis Take 1 capsule (20 mg total) by mouth daily. D/c famotidine 30 capsule 3 024 2024 Discontinued fenofibrate 160 MG tabletIndications :Hyperlipidemia, unspecified hyperlipidemia type TAKE 1 TABLET BY MOUTH NIGHTLY AT BEDTIME. 90 tablet 024 2024 Discontinued benzonatate (TESSALON PERLES) 100 MG capsuleIndication s:Bronchitis Take 1 capsule (100 mg total) by mouth 3 (three) times daily as needed for Cough. 40 capsule 024 2024 Discontinued(P t. elected to discontinue med) Fluticasone-Umecl idin-Vilant (TRELEGY ELLIPTA) 100-62.5-25 MCG/ACT AEROSOL POWDER, BREATH ACTIVATEDIndicati ons:Severe persistent asthma without complication ([facility]) Inhale 1 puff into the lungs daily. 60 each 3 025 2024 Discontinued(D ose adjustment) Active Problems Problem Noted Date Diagnosed Date Mild dementia, unspecified d ementia type, unspecified whether behavioral, psychotic, or mood disturbance or anxiety ([facility]) 05/13/2024 Severe episode of recurrent major depressive disorder, without psychotic features ([facility]) 05/13/2024 Hypoxemic respiratory failure, chronic ([facility]) 03/11/2024 Hyperlipidemia, unspecified hyperlipidemia type 03/11/2024 Generalized anxiety disorder 10/08/2023 Posttraumatic stress disorder 10/08/2023 Mild cognitive disorder 10/08/2023 Personal history of colonic polyps 05/13/2023 Physical deconditioning 12/11/2022 Asthma ([facility]) 05/15/2022 Esophageal pain 01/16/2022 Overview (01/16/2022): Added automatically from request for surgery [id number] Chronic bronchitis, unspecif ied chronic bronchitis type ([facility]) 01/07/2022 Severe persistent asthma wit hout complication ([facility]) 01/07/2022 Environmental and seasonal allergies 01/07/2022 Cigarette nicotine dependence in remission 01/07 Chronic bronchitis ([facility]) 01/07/2022 COPD exacerbation ([facility]) 12/21/2021 Gallstones 12/21/2021 Chronic obstructive pulmonary disease ([facility]) 12/21/2021 Calculus of gallbladder 12/21/2021 Lower abdominal pain 05/07/2021 Overview (05/07/2021): Added automatically from request for surgery [id number] Incontinence of feces, unspecified fecal inconti nence type 04/17/2021 Overview (04/17/2021): Added automatically from request for surgery [id number] History of colon polyps 04/17/2021 Overview (04/17/2021): Added automatically from request for surgery [id number] Abnormal finding on lung imaging 05/27/2016 History of asthma 04/09/2016 GERD (gastroesophageal reflux disease) 6 Mastalgia 07/27/2009 Resolved Problems Problem Noted Date Diagnosed Date Resolved Date Screen for colon cancer 05/12/202305/01 Encounters Date Type Department Care Team Description 06/29/2024 Telephone [facility] Multispecialty Care - [address], [address] [place] [address] Lucien Marrufo MD Medication 06/28/2024 Orders Only [facility] Medical [facility] - [place] [address] [place] [address] Anjel Villarreal MD 06/24/2024 12:38 PM COIL MAKER - 06/24/2024 11:59 PM COIL MAKER Hospital Encounter [facility] [address] [place] [address] Lexie Paz FNP-BC Discharge Disposition: Home or Self Care (Routine Discharge) 06/24/2024 11:30 AM COIL MAKER Laboratory Only [facility] Family & Internal Medicine [facility] [address] [place] [address] Lexie Paz FNP-BC 06/24/2024 9:20 AM COIL MAKER Office Visit [facility] [address] [place] [address] Lexie Paz FNP-BC Meet and Greet Provider (Transfer pt- Est Care ) 06/24/2024 Travel 06/22/2024 Telephone [facility] Pulmonology Specialty [address] [phone] Lucien Marrufo MD Orders 06/21/2024 Scan [facility] Scanned, [facility] 06/17/2024 Scan [facility] Scanned, [facility] 06/17/2024 Telephone [facility] Pulmonology Specialty [address] [address] Lucien Marrufo MD Medication; Question 06/15/2024 Telephone [facility] Pulmonology Specialty [address] [phone] Lucien Marrufo MD FYI 06/13/2024 Scan [facility] Scanned, [facility] 06/10/2024 Scan [facility] Scanned, [facility] 06/10/2024 Telephone [facility] Pulmonology Specialty [address] [address] Lucien Marrufo MD Question 06/10/2024 Telephone [facility] Pulmonology Specialty [address] [phone] Lucien Marrufo MD Medication Reconciliation 05/30/2024 Scan [facility] Scanned, [facility] 05/26/2024 Telephone [facility] Pulmonology Specialty [address] [phone] Lucien Marrufo MD Medication 05/16/2024 10:40 AM COIL MAKER Office Visit [facility] Family & Internal [address] [address] Nora Raza, MICHELLE Cough (Congestion-finished zpack and prednisone-headaches- no better-x 2-3 months) 05/16/2024 Travel 05/16/2024 Telephone [facility] Internal [address] [address] Anjel Villarreal MD Question 05/13/2024 1:00 PM COIL MAKER Office Visit [facility] Family Internal [address] [phone] Anjel Villarreal MD Medication (Follow up medication / mammo) 05/13/2024 Travel 05/02/2024 1:16 PM COIL MAKER - 05/02/2024 11:59 PM COIL MAKER Hospital Encounter [facility] Laboratory [address] [place] [address] Anjel Villarreal MD Discharge Disposition: Home or Self Care (Routine Discharge) 05/02/2024 8:40 AM COIL MAKER Laboratory Only [facility] Internal [address] [phone] Anjel Villarreal MD 05/02/2024 Travel 04/27/2024 Scan [facility] Scanned, [facility] 04/27/2024 Telephone [facility] Pulmonology Specialty [address] [address] Lucien Marrufo MD Orders 04/26/2024 10:20 AM COIL MAKER Office Visit [facility] Medical Group Pulmonology Specialty Clinic [address] [address] Lucien Marrufo MD COPD 04/26/2024 Travel 03/30/2024 Scan [facility] Scanned, [facility] from Last 3 Months Immunizations Name Administration Dates Next Due Arexvy Respiratory Syncytial Virus (RSV, adjuvanted) 0.5 mL, PF 03/02/2023 Influenza (Generic) 03/02/2023,03/04/2021 Influenza Adult (Generic) 03/03/2022,04/13/2020 Pneumococcal (Pneumovax 23) 03/04/2021 Pneumococcal (Prevnar 20) 07/21/2023 Family History Medical History Relation Comments Lung Cancer Brother 1 Cancer Brother 2 Lung Cancer Brother 3 Lung Cancer Father Emphysema Mother Diabetes Sister 1 Heart Disease Sister 1 CABG Diabetes Sister 2 complications fr om diabetes Relation Status Comments Brother 1 Brother 2 pancreatic cance r Brother 3 Father Mother Sister 1 Sister 2 Social History Tobacco Use Types Packs/Day Years Used Date Smoking Tobacco: Former Cigarettes 1 35 1 975 - 2009 Smokeless Tobacco: Never Tobacco Cessation:Counseling Given: No Alcohol Use Standard Drinks/Week Comments Never 0 (1 standard drink = 0.6 oz pur e alcohol) PHQ-2 Answer Date Recorded Patient Health Questionnaire-2 Score 4 06/24/2024 Comments No Sex and Gender Information Value Date Recorded Sex Assigned at Not on file Legal Sex Female 8:23 PM CDT Gender Identity Not on file Sexual Orientation Not on file Last Filed Vital Signs Vital Sign Reading Time Taken Comments Blood Pressure 122/70 06/24/2024 9:41 AM COIL MAKER Pulse 82 06/24/2024 9:41 AM COIL MAKER Temperature 36.4 ??C (97.5 ??F) 06/24/2024 9:41 AM CS T Respiratory Rate 20 06/24/2024 9:41 AM COIL MAKER Oxygen Saturation 97% 06/24/2024 9:41 AM COIL MAKER Inhaled Oxygen Concentration - - Weight 86.2 kg (190 lb) 06/24/2024 9:41 AM COIL MAKER Height 157.5 cm (5' 2 ) 06/24/2024 9:41 AM COIL MAKER Body Mass Index 34.75 06/24/2024 9:41 AM COIL MAKER Plan of Treatment Upcoming Encounters Date Type Department Care Team (Late st Contact Info) Description 07/28/2024 3:00 PM COIL MAKER Appointment [facility] Diagnostic Imaging [address] [place] [address] Lexie Paz, [facility]- [address] [facility], [address] [place] [address] 09/22/2024 9:20 AM CDT Office Visit [facility] Family & Internal Medicine [address] [phone] Lexie Paz [facility]- [address] [facility], [address] [address] 10/25/2024 9:40 AM CDT Office Visit [facility] Pulmonology Specialty Clinic [address] [phone] Lucien Marrufo MD [address] [place] [address] 04/18/2025 2:40 PM COIL MAKER Office Visit [facility]ty Clinic [address] [phone] Lucien Marrufo MD [address] [place] [phone] Health Maintenance Due Date Last Done Comments Dexa Scan (General) 2023 COVID-19 Vaccine ( season) 2025 Postponed from 01/31/2024 (Patient Refused) Mammogram Screening 05/26/2025 05/26/2023, 3 DTaP, Tdap and Td Vaccines (1 - Tdap) 06/28/2025 Postponed from 1977 (Patient Refused) Influenza Adult (#1) 2025 03/02/2023, 03/03/2022, 03/04/2021, Additional history exists Postponed from 03/01/2024 (Patient Refused) Zoster Vaccines (1 of 2) 06/28/2025 Pos tponed from 2008 (Patient Refused) Colorectal Cancer Screening Colonoscopy (10 Years) 07/07/2033 07/07/2023, 06/07/2021 Hepatitis C 06/28/2054 Postponed from 1976 (Patient Refused) RSV Immunization or 60+ Years Completed 03/02/2023 Pneumococcal Vaccine: 65+ Years Completed 07/21/2023, 03/04/2021 Pneumococcal Vaccine: Pediatrics (0 to 5 Years) and At-Risk Patients (6 to 64 Years) Completed 07/21/2023, 03/04/2021 PHQ-2 (Physician [place]) Completed 06/24/2024 Meningococcal B Vaccine Aged Out No l onger eligible based on patient's age to complete this topic Meningococcal Vaccine Aged Out No qiana waldo eligible based on patient's age to complete this topic RSV Immunizations Under 20 Months Aged Out No longer eligible based on patient's age to complete this topic Procedures Procedure Name Priority Date/Time Associated Diagnosis Comments COLLECTION VENOUS BLOOD VENIPUNCTURE Routine 06/24/2024 11:16 AM COIL MAKER Mixed hyperlipidemia Prediabetes Muscle spasms of both lower extremities LIPID PANEL Routine 06/24/2024 11:10 AM COIL MAKER Mixed hyperlipidemia HEMOGLOBIN, GLYCOSYLATED Routine 06/24/2024 11:10 AM COIL MAKER Prediabetes MAGNESIUM Routine 06/24/2024 11:10 AM COIL MAKER Muscle spasms of both lower extremities COLLECTION VENOUS BLOOD VENIPUNCTURE Routine 05/02/2024 8:35 AM COIL MAKER Hyperkalemia BASIC METABOLIC PANEL Routine 05/02/2024 8:30 AM COIL MAKER Hyperkalemia MAMMOGRAM GENERIC (SCAN ORDER) 05/26/2023 from Last 3 Months or Most Recently Relevant to Health Maintenance Results * (ABNORMAL) HEMOGLOBIN, GLYCOSYLATED (06/24/2024 11:10 AM COIL MAKER) HGB A1C 6.7(H) <5.7 % 06/24/2024 2:20 PM [facility] Comment: INCREASED RISK OF DIABETES <5.7% ?NON-DIABETES 5.7-6.4% INCREASED RISK FOR FUTURE DIABETES > OR = 6.5 CONSISTENT WITH DIABETES STANDARDS OF MEDICAL CARE IN DIABETES-2010 DIABETES CARE, 33(SUPP 1): S1-S61,2010 ESTIMATED AVG GLUCOSE 146 mg/dL 06/24/2024 2:20 PM [facility] 06/24/2024 11:1 0 AM COIL MAKER Lexie Paz [facility] Final Re sult [facility] [address] [place] [address], * (ABNORMAL) LIPID PANEL (06/24/2024 11:10 AM COIL MAKER) CHOLESTEROL 215(H) <200.0 MG/DL 06/24/2024 1:24 PM [facility] TRIGLYCERIDES 252(H) <150 MG/DL 06/24/2024 1:24 PM [facility] HDL 57 >40.0 MG/DL 06/24/2024 1:24 PM [facility] LDL (CALCULATED) 108(H) <100 MG/DL 06/24/2024 1:24 PM [facility] NON HDL CHOLESTEROL 158(H) <130 MG/DL 06/24/2024 1:24 PM [facility] CHOL/HDL RATIO 3.8 0.0 - 4.5 06/24/2024 1:24 PM [facility] VLDL CALCULATION 50 5 - 55 MG/DL 06/24/2024 1:24 PM [facility] LIPID INTERPRETATION 06/24/2024 1:24 PM [facility] Comment: NIH CONCENSUS REPORT RECOMMENDATIONS: ?ADULT ?CHILD ??LOW RISK: ?CHOLESTEROL ? <200 ? <170 ?TRIGLYCERIDE ?<150 ?--- ?HDL ? >=60 ?--- ?LDL ? <100 ? <110 ??BORDERLINE: ?CHOLESTEROL ? 200-239 ?? 170-199 ?TRIGLYCERIDE ?150-199 ? --- ?HDL ?40-59 ?--- ?LDL ? 100-159 ?? 110-129 ??HIGH RISK: ?CHOLESTEROL ? >=240 ?>=200 ?TRIGLYCERIDE ?>=200 ? --- ?HDL ?<40 ?--- ?LDL ? >=160 ?>=130 06/24/2024 11:1 0 AM COIL MAKER Lexie Paz [facility] Final Re sult Performing Organization Address [facility] de Phone Number [facility] [address] [place] [address], * MAGNESIUM (06/24/2024 11:10 AM COIL MAKER) MAGNESIUM 1.9 1.8 - 2.4 MG/DL 06/24/2024 1:24 PM [facility] 06/24/2024 11:1 0 AM COIL MAKER Lexie Paz [facility] Final Re sult Performing Organization Address [facility] de Phone Number [facility] [address] [place] [address], [place] [phone] * (ABNORMAL) BASIC METABOLIC PANEL (05/02/2024 8:30 AM COIL MAKER) GLUCOSE 188(H) 70 - 99 MG/DL 05/02/2024 1:52 PM [facility] BUN 24(H) 7 - 18 MG/DL 05/02/2024 1:52 PM [facility] CREATININE S/P/B 0.87 0.55 - 1.02 MG/DL 05/02/2024 1:52 PM [facility] SODIUM S/P/B 142 136 - 145 MMOL/L 05/02/2024 1:52 PM [facility] POTASSIUM S/P/B 4.6 3.5 - 5.1 MMOL/L 05/02/2024 1:52 PM [facility] CHLORIDE S/P/B 103 100 - 108 MMOL/L 05/02/2024 1:52 PM [facility] CO2 29.8 21 - 32 MMOL/L 05/02/2024 1:52 PM [facility] CALCIUM S/P/B 9.4 8.5 - 10.1 MG/DL 05/02/2024 1:52 PM [facility] ANION GAP 9.2 5 - 15 MMOL/L 05/02/2024 1:52 PM [facility] BUN CREATININE RATIO 27.6(H) 6 - 26 05/02/2024 1:52 PM [facility] GFR ESTIMATE 74(L) >90 ML/MIN/1.7 3 M2 05/02/2024 1:52 PM [facility] Comment: NOTE: eGFR is not calculated for patients <18 years of age. This is an estimated GFR calculation using the new CKD EPI creatinine equation without race and so does not require a correction factor for race. This estimated GFR should not be used for calculating drug doses. 05/02/2024 8:30 AM COIL MAKER Anjel Villarreal MD LABORATORY Final Resul t [facility] [address] [place] [address], * MAMMOGRAM GENERIC (SCAN ORDER) (05/26/2023) Anatomical Region Laterality Modality Other 05/26/2023 [facility] Scanned SCANNING Final Resu lt from Last 3 Months or Most Recently Relevant to Health Maintenance Insurance [employer] Advance Directives Documents on File Type Date Recorded Patient Product Applications Engineer Expl anation Power of Preschool Education Director 05/09/2022 9:58 AM 04-15 HCPOA - LIVING WILL Advance Directives and Living Will 12/09/2017 12:00 AM ADVANCED DIRECTIVES * Full Code (Latest Code Status on File) Date Activated Date Inactivated Comments 12/21/2021 1:58 PM 12/25/2021 2:26 PM Care Teams Dental Lab Technician Relationship Specialty Start Date End Date Lexie Paz, GUN SEALING MACHINE OPERATOR- [address] [facility] [address] [place] [address] PCP - General Nurse Practitioner Family 06/28/24 [place] [address] [place] [address] Consulting Physician PULMONARY DISEASE 03/29/24
--- OUTSIDE RECORDS SUMMARY | 2024-06-30 14:10 | XMS_ITS | Referral Summary ---
Author Organization [facility] [address] Address [address] [place] [address] Care Team Providers Care Seat Covers Trimmer Name Role Phone Juan De La Rosa MD Primary Care Provider [phone] Renetta Hensley RN Unavailable Unavailabl e Allergies No known active allergies Medications fluticasone-ume clidin-vilanter (Trelegy Ellipta) 200-62.5-25 mcg inhaler Inhale 1 puff daily 2 Active pravastatin (PRAVACHOL) 40 mg tablet Take 0.5 tablets (20 mg total) by mouth daily Active omeprazole (PriLOSEC) 40 mg capsule Take 1 capsule (40 mg total) by mouth daily Active benzonatate (TESSALON) 100 mg capsule TAKE 1 CAPSULE BY MOUTH EVERY 6 HOURS NEEDED FOR COUGH 2 Active docusate sodium (COLACE) 100 mg capsule Take 1 capsule (100 mg total) by mouth Active cyanocobalamin (Vitamin B-12) 1,000 mcg tablet Take 1 tablet (1,000 mcg total) by mouth daily Active albuterol HFA (PROVENTIL HFA,VENTOLIN HFA,PROAIR HFA) 90 mcg/actuation inhaler INHALE 1-2 PUFFS EVERY 6 HOURS NEEDED 2 Active potassium chloride ER (KLOR-CON) 10 mEq CR tablet Take 1 tablet/capsule (10 mEq total) by mouth daily Active multivitamin capsule Take 1 capsule by mouth daily Active cholecalciferol (VITAMIN D-3) 400 unit capsule Active fluticasone propionate (FLONASE) 50 mcg/actuation nasal spray Administer 2 sprays into each nostril daily 16 g 6 2 Active Additional Information Patient not taking.Reported on 09/10/2022 albuterol 2.5 mg /3 mL (0.083 %) nebulizer solution Take 3 mL by nebulization every 6 (six) hours as needed [address] (CYMBALTA) 60 mg capsule TAKE 1 CAPSULE BY MOUTH EVERY DAY FOR 90 DAYS 3 Active Active Problems Problem Noted Date Diagnosed Date Physical deconditioning 12/11/2022 Asthma 05/15/2022 Esophageal pain 01/16/2022 Overview (09/10/2022): Added automatically from request for surgery [id number] Chronic bronchitis 01/07/2022 Cigarette nicotine dependence in remission 01/07 Environmental and seasonal allergies 01/07/2022 Chronic obstructive pulmonary disease 12/21/2021 Calculus of gallbladder 12/21/2021 Lower abdominal pain 05/07/2021 Overview (09/10/2022): Added automatically from request for surgery [id number] Incontinence of feces 04/17/2021 Overview (09/10/2022): Added automatically from request for surgery [id number] Abnormal finding on lung imaging 05/27/2016 GERD (gastroesophageal reflux disease) 6 Diffuse cystic mastopathy 07/27/2009 Mastalgia 07/27/2009 Nipple discharge 07/27/2009 Overview (09/10/2022): Consistent with FCD Resolved Problems Problem Noted Date Diagnosed Date Resolved Date Severe persistent asthma without complication 01/08/20 22 12/11/2022 Immunizations Name Administration Dates Next Due Influenza, Quadrivalent, Rec ombinant, Egg Free, Preservative Free, Intramuscular 03/04/2021 Influenza, Quadrivalent, Spl it, Preservative Free, Intramuscular 03/03/2022,04/13/2020 Influenza, Unspecified 03/04/2021,04/13/2020 Pneumococcal Polysaccharide PPV23 03/04/2021 Social History Tobacco Use Types Packs/Day Years Used Date Smoking Tobacco: Former Cigarettes Smokeless Tobacco: Never Tobacco Cessation:Counseling Given: Not Answered Comments Unknown Sex and Gender Information Value Date Recorded Sex Assigned at Not on file Legal Sex Female 2:53 AM COMPOSITION PROFESSOR Gender Identity Not on file Sexual Orientation Not on file Last Filed Vital Signs Vital Sign Reading Time Taken Comments Blood Pressure 156/93 12/10/2022 11:39 AM CDT Pulse 70 12/10/2022 11:39 AM CDT Temperature 36.4 ??C (97.5 ??F) 12/10/2022 11:39 AM C DT Respiratory Rate 20 12/10/2022 11:39 AM CDT Oxygen Saturation 95% 12/10/2022 11:39 AM CDT 3 liters 02 Inhaled Oxygen Concentration - - Weight 79.4 kg (175 lb) 12/10/2022 11:39 AM CDT Height 157.5 cm (5' 2 ) 12/10/2022 11:39 AM CDT Body Mass Index 32.01 12/10/2022 11:39 AM CDT Plan of Treatment Not on file Insurance [facility] AETNA MEDICARE GOLD AETNA [facility] GOLD REF Care Teams Seat Covers Trimmer Relationship Specialty Start Date End Date Juan De La Rosa MD [address] [place] [id number] PCP - General Family Medicine 05/14/22 Renetta Hensley, RN Registered Nurse Pulmonary Disease 09/10/22
--- OUTSIDE RECORDS SUMMARY | 2024-06-30 14:10 | XMS_ITS | Encounter Summary ---
Author Organization [facility] Address [address] [place] [address]. [place] [address] [place] [address] Care Team Providers Care Hospital Cna Name Role Phone Lucien Marrufo MD Unavailable [phone] Lexie Paz [facility] Primary Care Provider + Encounter Details Date Type Department Care Team (Late st Contact Info) Description 06/28/2024 Orders Only [facility] Family & Internal Medicine - [place] [address] [place] [address] [place] [address] [facility] [address] [place] [address] Social History Tobacco Use Types Packs/Day Years [...] PM CDT Adonis Fernandez RN Active * Do you [...] 5:00 PM CDT Adonis Fernandez RN Active documented as of this encounter Mental Status * Because of a physical, mental, or emotional condition, do you have serious difficulty concentrating, remembering, or making decisions? Answer Entry Date Author Status No 12/21/2021 5:00 PM CDT Adonis Fernandez RN Active documented in this encounter Plan of Treatment Upcoming Encounters Date Type Department Care Team (Late st Contact Info) Description 07/28/2024 3:00 PM MORTGAGE MANAGER Appointment [facility] Diagnostic Imaging [address] [place], [place] [phone] Lexie Paz [facility] [address] [facility], [address] [address] 09/22/2024 9:20 AM CDT Office Visit [facility] Medical [facility] Family & Internal Medicine - [place] [address] [place] [address] Lexie Paz [facility] [address] [facility], [address] [address] 10/25/2024 9:40 AM CDT Office Visit [facility]ty Clinic [address] [address] Lcuien Marrufo MD [address] [place] [address] [place] [address] 04/18/2025 2:40 PM MORTGAGE MANAGER Office Visit [facility] [address] [phone] Lucien Marrufo MD 3rd [facility] [address] [place] [address] documented as of this encounter Visit Diagnoses Not on filedocumented in this encounter Additional Health Concerns Assessment Noted Time PHQ-9 Depression Total Score: 11 025 11:22 AM MORTGAGE MANAGER documented as of this encounter Care Teams Hospital Cna Relationship Specialty Start Date End Date Lexie Paz, [facility]- [address] [facility], [address] [place] [address] PCP - General Nurse Practitioner Family 06/28/24 [place] [address] [place] [address] Consulting Physician PULMONARY DISEASE 03/29/24 documented as of this encounter
--- OUTSIDE RECORDS SUMMARY | 2024-06-30 14:10 | XMS_ITS | Encounter Summary ---
Author Organization [facility] Address [address] [place] [address]. [place] [address] [place] [address] Care Team Providers Care Kitchen Hand Name Role Phone Jeancarlos Schulz MD Primary Care Provider [phone] Samantha Marroquin Primary Care Provider [phone] Jeancarlos Schulz MD Primary Care Provider [phone] Juan De La Rosa MD Primary Care Provider [phone] Anjel Villarreal MD Primary Care Provider [phone] Lucien Marrufo MD Unavailable [phone] Lexie Paz [facility] Primary Care Provider + Encounter Details Date Type Department Care Team (Late st Contact Info) Description 04/23/2021 Prep for Procedure [facility] One Day Services [address] [place], [place] [phone] Guillermo Robison MD [address] [address] Social History Tobacco Use Types Packs/Day Years Used Date Smoking Tobacco: Former Smokeless Tobacco: Never Alcohol Use Standard Drinks/Week Comments Never 0 (1 standard drink = 0.6 oz pur e alcohol) Comments No Sex and Gender Information Value Date Recorded Sex Assigned at Not on file Legal Sex Female 8:23 PM CDT Gender Identity Not on file Sexual Orientation Not on file COVID-19 Exposure Response Date Recorded In the last month, have you been in contact with someone who was confirmed or suspected to have Coronavirus / COVID-19? No / Unsure 04/16/2021 12:54 PM HORTICULTURE SUPERINTENDENT documented as of this encounter Plan of Treatment Upcoming Encounters Date Type Department Care Team (Late st Contact Info) Description 07/28/2024 3:00 PM HORTICULTURE SUPERINTENDENT Appointment [facility] Diagnostic Imaging [address] [place] [address] Lexie Paz, [facility]- [address] [facility], [address] [address] 09/22/2024 9:20 AM CDT Office Visit [facility] Family & Internal Medicine [facility] [address] [place] [phone] Lexie Paz, [facility]- [address] [facility], [address] [address] 10/25/2024 9:40 AM CDT Office Visit [facility] Medical [facility] Pulmonology Specialty Clinic [address] [phone] Lucien Marrufo MD [address] [place] [address] 04/18/2025 2:40 PM HORTICULTURE SUPERINTENDENT Office Visit [facility] Pulmonology Specialty [address] [phone] Lucien Marrufo MD [address] [place] [address] documented as of this encounter Results * (ABNORMAL) PRE-SURGICAL/PRE-PROCEDURE CORONAVIRUS (COVID 19) (04/30/2021 9:03 AM HORTICULTURE SUPERINTENDENT) SPECIMEN SOURCE NASAL 9:01 AM HORTICULTURE SUPERINTENDENT [facility] CORONAVIRUS SARS COV 2 PCR (RESP) POSITIVE(A A) NEGATIVE 04/30/2021 7:10 PM HORTICULTURE SUPERINTENDENT [facility] Comment: THE SARS-CoV-2 TEST HAS BEEN AUTHORIZED BY THE FDA UNDER AN EUA FOR USE BY AUTHORIZED LABORATORIES. PERFORMED BY NUCLEIC ACID AMPLIFICATION PCR FIRST TEST UNKNOWN 04/30/2021 9:01 AM HORTICULTURE SUPERINTENDENT [facility] EMPLOYED IN HEALTHCARE NO 04/30/2021 9:01 AM HORTICULTURE SUPERINTENDENT [facility] SYMPTOMATIC DEFINED BY CDC UNKNOWN 04/30/2021 9:01 AM HORTICULTURE SUPERINTENDENT [facility] HOSPITALIZATION STATUS NO 04/30/2021 9:01 AM HORTICULTURE SUPERINTENDENT [facility] PATIENT IN ICU NO 04/30/2021 9:01 AM [facility] NO 04/30/2021 9:01 AM [facility] NASAL STRUCTURE / Unknown 04/30/2021 9:03 AM HORTICULTURE SUPERINTENDENT Guillermo Robison MD MICROBIOLOGY - GENERAL ORDERABLE S Final Result Performing Organization Address City/State/[facility] Co de Phone Number [facility] [address] [place] [address], [place] [phone] [facility] [address] [place] [address], [place] [phone] documented in this encounter Visit Diagnoses Diagnosis Preop testing- Primary Preoperative examination, unspecified documented in this encounter Additional Health Concerns Infection Onset Date Last Indicated Resolved Time COVID-19 Rule Out 04/30/2021 04/30/2021 04/30/2021 7:10 PM HORTICULTURE SUPERINTENDENT COVID-19 Confirmed 04/30/2021 04/30/2021 12:32 AM HORTICULTURE SUPERINTENDENT COVID-19 Rule Out 06/04/2021 06/04/2021 06/04/2021 7:59 PM HORTICULTURE SUPERINTENDENT COVID-19 Rule Out 12/21/2021 12/21/2021 12/21/2021 12:59 PM CDT COVID-19 Rule Out 02/23/2022 02/23/2022 02/24/2022 6:50 PM CDT documented as of this encounter Care Teams Kitchen Hand Relationship Specialty Start Date End Date Jeancarlos Schulz MD [address] [place] [address] PCP - General INTERNAL MEDICINE 05/27/19 12/26/21 Samantha Marroquin PA [address] [place] [address] PCP - General PHYSICIAN ALLIANCES CONSULTANT 12/27/21 01/06/22 Jeancarlos Schulz MD [address] [place] [address] PCP - General INTERNAL MEDICINE 01/07/22 01/16/22 Juan De La Rosa MD [address] [place] [address] PCP - General FAMILY PRACTICE 01/17/22 03/06/24 [place] [address] [address] PCP - General INTERNAL MEDICINE 03/07/24 06/27/24 Lexie Paz, MARKET ANALYSIS DIRECTOR- [address] [address], [address] [place] [address] PCP - General Nurse Practitioner Family 06/28/24 [place] [address] [place] [address] Consulting Physician PULMONARY DISEASE 03/29/24 documented as of this encounter
--- OUTSIDE RECORDS SUMMARY | 2024-06-30 14:10 | XMS_ITS | Encounter Summary ---
Author Organization [facility] Address [address] [place] [address]. [place] [address] [place] [address] Care Team Providers Care Veneer Measurer Name Role Phone Jeancarlos Schulz MD Primary Care Provider [phone] Samantha Marroquin Primary Care Provider [phone] Jeancarlos Schulz MD Primary Care Provider [phone] Juan De La Rosa MD Primary Care Provider [phone] Anjel Villarreal MD Primary Care Provider [phone] Lucien Marrufo MD Unavailable [phone] Lexie Paz [facility] Primary Care Provider + Encounter Details Date Type Department Care Team (Late st Contact Info) Description 05/29/2021 Prep for Procedure [facility] One Day Services [address] [place], [place] [id number] Guillermo Robison MD [address] [address] Social History Tobacco Use Types [...] have Coronavirus / COVID-19? No / Unsure 04/30/2021 9:00 AM CHEMIST INTERNSHIP documented as of this encounter Plan of Treatment Upcoming Encounters Date Type Department Care Team (Late st Contact Info) Description 07/28/2024 3:00 PM CHEMIST INTERNSHIP Appointment [facility] Diagnostic Imaging [address] [place] [address] Lexie Paz, [facility]- [address] [facility], [address] [address] 09/22/2024 9:20 AM CDT Office Visit [facility] Family & Internal Medicine [facility] [address] [place] [phone] Lexie Paz, [facility]- [address] [facility], [address] [address] 10/25/2024 9:40 AM CDT Office Visit [facility] Medical [facility] Pulmonology Specialty Clinic [address] [phone] Lucien Marrufo MD [address] [place] [address] 04/18/2025 2:40 PM CHEMIST INTERNSHIP Office Visit [facility] Medical [facility] Pulmonology Specialty [address] [phone] Lucien Marrufo MD [address] [place] [address] documented as of this encounter Results * PRE-SURGICAL/PRE-PROCEDURE CORONAVIRUS (COVID 19) (06/04/2021 8:16 AM CHEMIST INTERNSHIP) SPECIMEN SOURCE NASAL 8:10 AM CHEMIST INTERNSHIP [facility] CORONAVIRUS SARS COV 2 PCR (RESP) NEGATIVE NEGATIVE 06/04/2021 7:59 PM CHEMIST INTERNSHIP [facility] Comment: THE SARS-CoV-2 TEST HAS BEEN AUTHORIZED BY THE FDA UNDER AN EUA FOR USE BY AUTHORIZED LABORATORIES. PERFORMED BY NUCLEIC ACID AMPLIFICATION PCR FIRST TEST UNKNOWN 06/04/2021 8:10 AM CHEMIST INTERNSHIP [facility] EMPLOYED IN HEALTHCARE NO 06/04/2021 8:10 AM CHEMIST INTERNSHIP [facility] SYMPTOMATIC DEFINED BY CDC UNKNOWN 06/04/2021 8:10 AM CHEMIST INTERNSHIP [facility] HOSPITALIZATION STATUS NO 06/04/2021 8:10 AM CHEMIST INTERNSHIP [facility] PATIENT IN ICU NO 06/04/2021 8:10 AM CHEMIST INTERNSHIP [facility] RESIDENT OF [facility] NO 06/04/2021 8:10 AM CHEMIST INTERNSHIP [facility] NASAL STRUCTURE / Unknown 06/04/2021 8:16 AM CHEMIST INTERNSHIP Guillermo Robison MD MICROBIOLOGY - GENERAL ORDERABLE S Final Result Performing Organization Address City/State/[facility] Co de Phone Number [facility] [address] [place] [address], [place] [phone] [facility] [address] [place] [address], [place] [phone] documented in this encounter Visit Diagnoses Diagnosis Preop testing- Primary Preoperative examination, unspecified documented in this encounter Additional Health Concerns Infection Onset Date Last Indicated Resolved Time COVID-19 Rule Out 06/04/2021 06/04/2021 06/04/2021 7:59 PM CHEMIST INTERNSHIP COVID-19 Rule Out 12/21/2021 12/21/2021 12/21/2021 12:59 PM CDT COVID-19 Rule Out 02/23/2022 02/23/2022 02/24/2022 6:50 PM CDT documented as of this encounter Care Teams Veneer Measurer Relationship Specialty Start Date End Date Jeancarlos Schulz MD [address] [place] [address] PCP - General INTERNAL MEDICINE 05/27/19 12/26/21 Samantha Marroquin, PA [address] [place] [address] PCP - General PHYSICIAN SPINNER TENDER 12/27/21 01/06/22 Jeancarlos Schulz MD [address] [place] [address] PCP - General INTERNAL MEDICINE 01/07/22 01/16/22 Juan De La Rosa MD [address] [place] [address] PCP - General FAMILY PRACTICE 01/17/22 03/06/24 [place] [address] [address] PCP - General INTERNAL MEDICINE 03/07/24 06/27/24 Lexie Paz, PICKLER HELPER- [address] [facility], [address] [address] PCP - General Nurse Practitioner Family 06/28/24 [place] [address] [place] [address] Consulting Physician PULMONARY DISEASE 03/29/24 documented as of this encounter
--- OUTSIDE RECORDS SUMMARY | 2024-06-30 14:10 | XMS_ITS | Clinical Summary ---
Author Organization [facility] [address] [facility] [address] Address [address] [place] [address] Care Team Providers Care Pasting Machine Offbearer Name Role Phone Juan De La Rosa MD Primary Care Provider [phone] Renetta Hensley RN Unavailable Unavailabl e Allergies [...] (09/10/2022): Added automatically from request for surgery [id number] Chronic bronchitis 01/07/2022 Cigarette nicotine dependence in remission 01/07 Environmental and seasonal allergies 01/07/2022 Chronic obstructive pulmonary disease 12/21/2021 Calculus of gallbladder 12/21/2021 Lower abdominal pain 05/07/2021 Overview (09/10/2022): Added automatically from request for surgery [id number] Incontinence of feces 04/17/2021 Overview (09/10/2022): Added automatically from request for surgery [id number] Abnormal finding on lung imaging 05/27/2016 GERD [...] Influenza, Unspecified 03/04/2021,04/13/2020 Pneumococcal Polysaccharide PPV23 03/04/2021 Surgical History Surgery Date Site/Laterality Comments LUMBAR PUNCTURE WO INJECTION, DIAGNOSTIC 10/15/2012 N/A Family History Medical History Relation Name Comments Diabetes Brother Lung cancer Brother Lung disease Brother Thyroid disease Brother Cancer Father Lung disease Father Diabetes Mother Emphysema Mother Diabetes Sister Heart disease Sister Thyroid disease Sister Relation Name Status Comments Brother Father Mother Sister Social History Tobacco Use Types Packs/Day Years Used Date Smoking Tobacco: Former Cigarettes Smokeless Tobacco: Never Tobacco Cessation:Counseling Given: Not Answered Comments Unknown Sex and Gender Information Value Date Recorded Sex Assigned at Not on file Legal Sex Female 2:53 AM CLAIM APPROVER Gender Identity Not on file Sexual Orientation Not on file Obstetrics History Last Filed Vital Signs Vital Sign Reading [...] 12/10/2022 11:39 AM CDT Plan of Treatment Health Maintenance Due Date Last Done Comments Breast Cancer Screening-Mammogram 1958 Cervical Cancer Screening 1958 Colon Cancer Screening-Colonoscopy 1958 Depression Screening 1958 Fall Risk Assessment 1958 Hepatitis C Screening 1958 Osteoporosis Screening-Bone Density Scan 1958 DTaP/Tdap/Td Vaccine (1 - Tdap) 1969 Hepatitis B Screening 1976 Zoster Vaccine (1 of 2) 2008 Pneumococcal vaccine 65+ (2 of 2 - PCV) 03/04/2022 03/04/2021 Well Visit 65+ 2023 Influenza Vaccine (#1) 2024 2, 03/04/2021, 03/04/2021, Additional history exists [facility]F AETNA MEDICARE GOLD AETNA [facility] GOLD REF Care Teams Pasting Machine Offbearer Relationship Specialty Start Date End Date Juan De La Rosa MD [address] [place] [address] PCP - General Family Medicine 05/14/22 Renetta Hensley, RN Registered Nurse Pulmonary Disease 09/10/22
--- OUTSIDE RECORDS SUMMARY | 2024-06-30 14:10 | XMS_ITS | Encounter Summary ---
Author Organization [facility] Address [address] [place] [address]. [place], [place] [address] [place] [address] Care Team Providers Care Cisco Certified Network Associate Name Role Phone Anjel Villarreal MD Primary Care Provider [phone] Lucien Marrufo MD Unavailable [phone] Lexie Paz [facility] Primary Care Provider + Encounter Details Date Type Department Care Team (Latest Contact Info) Description 06/21/2024 Scan HEALTH INFO SRVCS Scanned, Doc Med Group Social History Tobacco Use Types Packs/Day Years Used Date Smoking Tobacco: Former Cigarettes 1 35 1 975 - 2009 Smokeless Tobacco: Never Alcohol Use Standard Drinks/Week [...] No 12/21/2021 5:00 PM CDT Adonis Fernandez R N Active * Do you have difficulty dressing or bathing? Answer Date of Assessment Author Status No 12/21/2021 5:00 PM ARTUROT Adonis Fernandez RN Active * Because of a physical, mental, or emotional condition, do you have difficulty doing errands alone such as visiting a doctor's office or shopping? Answer Date of Assessment Author Status No 12/21/2021 5:00 PM ARTUROT Adonis Fernandez RN Active documented as of this encounter Mental Status * Because of a physical, mental, or emotional condition, do you have serious difficulty concentrating, remembering, or making decisions? Answer Entry Date Author Status No 12/21/2021 5:00 PM ARTUROT Adonis Fernandez RN Active documented in this encounter Plan of Treatment Upcoming Encounters Date Type Department Care Team (Late st Contact Info) Description 07/28/2024 3:00 PM LINE PRODUCTION COOK Appointment [facility] Diagnostic Imaging [address] [place] [address] Lexie Paz, [facility] [address] [facility], [address] [address] 09/22/2024 9:20 AM CDT Office Visit [facility] Family & Internal Medicine [address] [phone] Lexie Paz, [facility] [address] [facility], [address] [address] 10/25/2024 9:40 AM CDT Office Visit [facility] Pulmonology Specialty Clinic [address] [phone] Lucien Marrufo MD [address] [place] [address] 04/18/2025 2:40 PM LINE PRODUCTION COOK Office Visit [facility] Pulmonology Specialty Clinic - [address] [phone] Lucien Marrufo MD [address] [place] [address] documented as of this encounter Visit Diagnoses Not on filedocumented in this encounter Care Teams Cisco Certified Network Associate Relationship Specialty Start [place] [address] [facility] [address] [place] [address] PCP - General INTERNAL MEDICINE 03/07/24 06/27/24 Lexie Paz, [facility] [address] [facility], [address] [address] PCP - General Nurse Practitioner Family 06/28/24 [place] [address] [place] [address] Consulting Physician PULMONARY DISEASE 03/29/24 documented as of this encounter
== END 2024-06-30 13:25 | disposition home or self-care (01) ==
LOC: CHSIMG 13:27
PROVIDERS: PCP Nurse Practitioner Family; Visit Provider Internal Medicine
DX: Z12.31 Encounter for screening mammogram for malignant neoplasm of breast (principal)
CPT/HCPCS: 77063; 77067